=== PATIENT | female | born 1985 | race Caucasian/White ===

== ENCOUNTER 2017-11-20 06:12 | Emergency (ER) | payer SELFPAY ==
[~2017-11-20] VITALS: Ht 172.7 cm; Wt 68.7 kg
[2017-11-20 08:19] LABS: HEMATOCRIT 29.1 % (36.0-46.0); HEMOGLOBIN 9.8 G/DL (11.9-15.5); MCH 28.2 PG (29.0-34.0); MCHC 33.7 G/DL (30.0-36.0); MCV 83.9 FL (83-99); RBC DIS.WIDTH-CV 14.6 % (11.8-14.6); RBC DIS.WIDTH-SD 44.8 % (39-53); RED BLOOD COUNT 3.47 M/uL (3.80-5.20); WHITE BLOOD COUNT 3.5 K/uL (4.1-10.2)
[2017-11-20 08:30] LABS: CHLORIDE 103 mEq/L (99-109); POTASSIUM 3.5 mEq/L (3.7-5.4); SODIUM 136 mEq/L (136-147)
[2017-11-20 08:31] LABS: GLUCOSE 110 mg/dL (70-99)
[2017-11-20 08:35] LABS: CREATININE 0.7 mg/dL (0.6-1.3)
[2017-11-20 08:36] LABS: UREA NITROGEN (BUN) 9 mg/dL (9-23)
[2017-11-20 08:42] LABS: GFR ESTIMATE (CALCULATED) > 59 mL/min/
[2017-11-20 09:22] LABS: BASOPHIL (%) 0.6 % (0-1); EOSINOPHIL (%) 0.9 % (0-5); IMMATURE GRANULOCYTE (%) 0.3 % (0.0-0.7); LYMPHOCYTE (%) 54.7 % (15-42); LYMPHOCYTE COUNT 1.9 K/uL (1.0-2.8); MONOCYTE (%) 8.3 % (3-12); MONOCYTE COUNT 0.3 K/uL (0-0.8); NEUTROPHIL (%) 35.2 % (45-76); NEUTROPHIL COUNT 1.2 K/uL (1.8-6.4); PLATELET COUNT 101 K/uL (156-360)
[2017-11-20 09:42] LABS: PLAT.SUFFICIENCY DECREASED
[2017-11-20 11:33] VITALS: BP 86/45
== END 2017-11-20 11:35 | disposition left against medical advice (07) ==
LOC: EME 06:12
PROVIDERS: Emergency Medicine
DX: I80.01 Phlebitis and thrombophlebitis of superficial vessels of right lower extremity (principal); R50.9 Fever, unspecified; Z53.21 Procedure and treatment not carried out due to patient leaving prior to being seen by health care provider; F17.200 Nicotine dependence, unspecified, uncomplicated; B19.20 Unspecified viral hepatitis C without hepatic coma; Z21 Asymptomatic human immunodeficiency virus [HIV] infection status
CPT/HCPCS: 71045; 71046; 80048; 81003; 83605; 85025; 87040; 93971; 99281; 99283